=== PATIENT | male | born 1960 | race Caucasian/White ===

== ENCOUNTER → 2018-08-18 | Outpatient (CLI) | payer OTHER ==
--- NOTE | 2018-08-20 13:11 | TST ---
[place] [address] [facility] STRESS TEST Name: DEONTE PENA Room: [facility]#: [id number] Admission: 08/18/18 Attend Phys: RIK FRANCOIS Discharge: Date of : 64 Date of Service: 08/18/18 1708 Report #: [id number] THIS REPORT FOR: //name// CC: Neftaly PARRA DATE OF SERVICE: 08/18/2018 INDICATIONS: Exercise stress test requested in this patient with a history of hypertension. PROCEDURE: The patient was exercised on a Joe protocol from a pretest heart rate of 86, blood pressure 140/79. The patient was able to exercise for 9 minutes 22 seconds on a Joe protocol achieving a peak heart rate of 174, which is greater than 90% of maximum predicted heart rate for the patient's age. The peak blood pressure was 213/84. In recovery, the patient had heart rate of 108, blood pressure of 134/76. The patient denied chest pain with exercise, which was terminated because of leg pain. The patient's resting ECG showed a normal sinus rhythm with no significant ST or T-wave change noted at baseline. With exercise, the patient did develop J-point depression, but there was no significant ST-segment depression at 80 milliseconds after the J-point. There was a rare PAC noted with exercise. IMPRESSION: 1. Adequate exercise tolerance. 2. No chest pain with exercise. 3. No ischemic ST-segment changes noted with exercise. 4. Negative exercise stress test for myocardial ischemia. 5. Low risk exercise stress test for predicting future cardiac events. <ELECTRONICALLY SIGNED> By: Joe Vences MD, FACC 08/20/18 1311 1708 0615 Joe Vences MD, FACC /nt
== END ==
LOC: M.CRD 10:50
DX: R94.31 Abnormal electrocardiogram [ECG] [EKG] (principal); I10 Essential (primary) hypertension